=== PATIENT | male | born 2000 | race Caucasian/White ===

== ENCOUNTER 2021-06-26 22:42 | Emergency (ER) | payer BC ==
[2021-06-26] MEDS ORDERED: Sodium Chloride 0.9% 10 ML Syringe FLUSH PRN (22:49)
[2021-06-26] MEDS ORDERED: HYDROmorphone 1 MG/ML Syringe IVPUSH ONE (22:50)
[2021-06-26] MEDS ORDERED: Lactated Ringers 1,000 ML IV SCH (23:00)
[2021-06-26] MEDS ORDERED: Ketamine 500 mg/10 ML MDV ONE (23:47)
[2021-06-26] MEDS ORDERED: Midazolam 1 MG/ML 2 ML SDV ONE (23:47)
--- NOTE | 2021-06-27 00:07 | EDM.PDOC ---
ED HPI GENERAL MEDICAL PROBLEM - General Chief Complaint: Lower Extremity Injury/Pain Stated Complaint: DISLOCATED RT HIP Time Seen by Provider: 06/26/21 22:49 Source of Information: Reports: Patient History Limitations: Reports: No Limitations - History of Present Illness INITIAL COMMENTS - FREE TEXT/NARRATIVE: The patient presents with left hip pain. He was wrestling with some friends and he squatted down to lift his friend and his friend put his weight down on him. His knee went in and he thinks his left hip is dislocated. It is internally rotated and shortened and he cannot move it. He has never had a dislocation of his hip before. He has no other injuries. He has no medical problems. He last ate at 7pm tonight. He did have some drinks tonight. Onset: Sudden Duration: Minutes: Location: Reports: Lower Extremity, Left (hip pain) Quality: Reports: Sharp Severity: Severe Improves with: Reports: Immobilization Worsens with: Reports: Movement Context: Reports: Trauma (wrestling) Associated Symptoms: Reports: No Other Symptoms left hip Pain Score (Numeric/FACES): 8 - Related Data Allergies Allergy/AdvReac Type Severity Reaction Status Date / Time No Known Allergies Allergy Verified 06/26/21 22:53 Home Meds: Home Meds . [No Known Home Meds] 06/26/21 [History] Past Medical History - Past Health History Medical/Surgical History: Denies Medical/Surgical History Social & Family History - Tobacco Use Tobacco Use Status *Q: Never Tobacco User - Recreational Drug Use Recreational Drug Use: No Review of Systems - Review of Systems Review Of Systems: See Below Constitutional: Reports: No Symptoms Eyes: Reports: No Symptoms Ears: Reports: No Symptoms Nose: Reports: No Symptoms Mouth/Throat: Reports: No Symptoms Respiratory: Reports: No Symptoms Cardiovascular: Reports: No Symptoms GI/Abdominal: Reports: No Symptoms Genitourinary: Reports: No Symptoms Musculoskeletal: Reports: Other (Left hip pain) ED EXAM, GENERAL - Physical Exam Exam: See Below Exam Limited By: No Limitations General Appearance: Alert, No Apparent Distress Ears: Normal External Exam Nose: Normal Inspection Head: Atraumatic, Normocephalic Neck: Normal Inspection Respiratory/Chest: No Respiratory Distress, Lungs Clear, Normal Breath Sounds Cardiovascular: Regular Rate, Rhythm, No Edema, No Murmur GI/Abdominal: Soft, Non-Tender, No Organomegaly, No Mass Extremities: Other (Left leg is shortened and internally rotated with pain upon palpation to the hip area. Good pulses distally. The patient has some minor decreased sensation to his left leg.) ED TRAUMA EXTREMITY PROCEDURES - Joint Reduction Left Hip Sedation: Conscious Sedation Pre-Procedure NV Status: Abnormal (mild numbness) Post-Procedure NV Status: Normal Technique: Traction/Counter Traction Number of Attempts: 1 Post-Reduction Imaging: Completely Reduced Joint Reduction Complications: No Course - Vital Signs Last Recorded V/S: Last Vital Signs Temp 97.5 F 06/26/21 22:49 Pulse 96 06/27/21 00:01 Resp 14 06/27/21 00:01 BP 153/84 H 06/27/21 00:01 Pulse Ox 100 06/27/21 00:01 - Orders/Labs/Meds Orders: Active Orders 24 hr Category Date Time Status Peripheral IV Care [RC] . DIRECTED Care 06/26/21 22:49 Active Hip Min 1V w Pelvis Lt [CR] Stat Exams 06/27/21 00:08 Taken Pelvis 1V or 2V [CR] Stat Exams 06/26/21 22:50 Taken Lactated Ringers [Ringers, Lactated] 1,000 ml Med 06/26/21 23:00 Active IV ASDIRECTED Sodium Chloride 0.9% [Saline Flush] Med 06/26/21 22:49 Active 10 ml FLUSH ASDIRECTED PRN Durable Medical Equipment for Discharge [DME for Oth 06/27/21 00:19 Ordered Discharge] [COMM] Stat Peripheral IV Insertion Adult [OM.PC] Routine Oth 06/26/21 22:49 Ordered Medication Orders Lactated Ringer's (Ringers, Lactated) 1,000 mls @ 100 mls/hr IV ASDIRECTED ROVERTO Last Admin: 06/26/21 23:02 Dose: 100 mls/hr Documented by: LEO Sodium Chloride (Sodium Chloride 0.9% 10 Ml Syringe) 10 ml FLUSH ASDIRECTED PRN PRN Reason: Keep Vein Open Last Admin: 06/26/21 23:02 Dose: 10 ml Documented by: LEO Meds: Medications Generic Name Dose Route Start Last Admin Trade Name Freq PRN Reason Stop Dose Admin Lactated Ringer's 1,000 mls @ 100 mls/hr 06/26/21 23:00 06/26/21 23:02 Ringers, Lactated IV 100 mls/hr ASDIRECTED ROVERTO Administration Sodium Chloride 10 ml 06/26/21 22:49 06/26/21 23:02 Sodium Chloride 0.9% 10 Ml Syringe FLUSH 10 ml ASDIRECTED PRN Administration Keep Vein Open Discontinued Medications Generic Name Dose Route Start Last Admin Trade Name Zaida PRN Reason Stop Dose Admin Hydromorphone HCl 1 mg 06/26/21 22:50 06/26/21 22:59 Hydromorphone 1 Mg/Ml Syringe IVPUSH 06/26/21 22:51 1 mg ONETIME ONE Administration Ketamine HCl Confirm 06/26/21 23:47 Ketamine 500 Mg/10 Ml Mdv Administered 06/26/21 23:48 Dose 500 mg .ROUTE .STK-MED ONE Midazolam HCl Confirm 06/26/21 23:47 Midazolam 1 Mg/Ml 2 Ml Sdv Administered 06/26/21 23:48 Dose 2 mg .ROUTE .STK-MED ONE - Re-Assessments/Exams Free Text/Narrative Re-Assessment/Exam: 06/27/21 00:11 I ordered an IV LR at 100ml/hr, dilaudid and an x-ray of his hip. The x-ray shows a posterior dislocation. I had my TRANSFER MAN come in [place] and he sedated the patient and I was able to reduce the dislocation. The x-ray confirms the reduction and there is no fracture. I will get him some crutches and follow up with Dr Wolfe. Departure - Departure Time of Disposition: 00:20 Disposition: Home, Self-Care 01 Condition: Good Clinical Impression: Hip dislocation, left Qualifiers: Encounter type: initial encounter Qualified Code(s): S73.005A - Unspecified dislocation of left hip, initial encounter - Discharge Information *PRESCRIPTION DRUG MONITORING PROGRAM REVIEWED*: Not Applicable *COPY OF PRESCRIPTION DRUG MONITORING REPORT IN PATIENT RONALD: Not Applicable Referrals: PCP,Not In Area [Primary Care Provider] - Eulalio Wolfe MD [Physician] - 1 Week Forms: ED Department Discharge Additional Instructions: Ice your hip for 15 minutes 3 times per day for 3 days. Take tylenol or motrin as needed for pain. Follow up with Dr Wolfe within a week. Follow up with your guide dog trainer tomorrow. Use the crutches and only put light weight on your leg for a few days and advance after that. Please return if you are worse. Sepsis Event Note (ED) - Evaluation Sepsis Screening Result: No Definite Risk - Focused Exam Vital Signs: Vital Signs Temp Pulse Resp BP Pulse Ox 06/27/21 00:01 96 14 153/84 H 100 06/26/21 22:49 97.5 F 92 18 127/71 99 - My Orders Last 24 Hours: My Active Orders 06/26/21 22:49 Peripheral IV Care [RC] . DIRECTED Sodium Chloride 0.9% [Saline Flush] 10 ml FLUSH ASDIRECTED PRN Peripheral IV Insertion Adult [OM.PC] Routine 06/26/21 22:50 Pelvis 1V or 2V [CR] Stat 06/26/21 23:00 Lactated Ringers [Ringers, Lactated] 1,000 ml IV ASDIRECTED 06/27/21 00:08 Hip Min 1V w Pelvis Lt [CR] Stat 06/27/21 00:19 Durable Medical Equipment for Discharge [DME for Discharge] [COMM] Stat - Assessment/Plan Last 24 Hours: My Active Orders 06/26/21 22:49 Peripheral IV Care [RC] . DIRECTED Sodium Chloride 0.9% [Saline Flush] 10 ml FLUSH ASDIRECTED PRN Peripheral IV Insertion Adult [OM.PC] Routine 06/26/21 22:50 Pelvis 1V or 2V [CR] Stat 06/26/21 23:00 Lactated Ringers [Ringers, Lactated] 1,000 ml IV ASDIRECTED 06/27/21 00:08 Hip Min 1V w Pelvis Lt [CR] Stat 06/27/21 00:19 Durable Medical Equipment for Discharge [DME for Discharge] [COMM] Stat
--- NOTE | 2021-06-27 00:21 | PCM.PREANE ---
Preanesthetic Assessment - Procedure Proposed Procedure: Left hip reduction - Anesthesia/Transfusion/Family Hx Anesthesia History: Prior Anesthesia Without Reaction (wisdom teeth) Family History of Anesthesia Reaction: No Transfusion History: No Prior Transfusion(s) - Review of Systems General: No Symptoms Pulmonary: No Symptoms Cardiovascular: No Symptoms Gastrointestinal: No Symptoms Neurological: No Symptoms Other: Reports: None - Physical Assessment NPO Status Date: 06/26/21 NPO Status Time: 22:30 Vital Signs: Last Vital Signs Temp 36.4 C 06/26/21 22:49 Pulse 96 06/27/21 00:01 Resp 14 06/27/21 00:01 BP 153/84 H 06/27/21 00:01 Pulse Ox 100 06/27/21 00:01 Height: 1.7 m Weight: 70.307 kg ASA Class: 1E Mental Status: Alert & Oriented x3 Airway Class: Mallampati = 2 Dentition: Reports: Normal Dentition Thyro-Mental Finger Breadths: 3 Mouth Opening Finger Breadths: 3 ROM/Head Extension: Full Lungs: Clear to Auscultation, Normal Respiratory Effort Cardiovascular: Regular Rate, Regular Rhythm - Allergies Allergies/Adverse Reactions: Allergies Allergy/AdvReac Type Severity Reaction Status Date / Time No Known Allergies Allergy Verified 06/26/21 22:53 - Blood Blood Available: No Product(s) Available: None - Anesthesia Plan Pre-Op Medication Ordered: None - Acknowledgements Anesthesia Type Planned: MAC (versed, ketamine) Pt an Appropriate Candidate for the Planned Anesthesia: Yes Alternatives and Risks of Anesthesia Discussed w Pt/Guardian: Yes Pt/Guardian Understands and Agrees with Anesthesia Plan: Yes PreAnesthesia Questionnaire - Past Health History Medical/Surgical History: Denies Medical/Surgical History - SUBSTANCE USE Tobacco Use Status *Q: Never Tobacco User Recreational Drug Use History: No - HOME MEDS Home Medications: Home Meds . [No Known Home Meds] 06/26/21 [History] - CURRENT (IN HOUSE) MEDS Current Meds: Current Medications Lactated Ringer's (Ringers, Lactated) 1,000 mls @ 100 mls/hr IV ASDIRECTED ROVERTO Last Admin: 06/26/21 23:02 Dose: 100 mls/hr Documented by: Sodium Chloride (Sodium Chloride 0.9% 10 Ml Syringe) 10 ml FLUSH ASDIRECTED PRN PRN Reason: Keep Vein Open Last Admin: 06/26/21 23:02 Dose: 10 ml Documented by: Discontinued Medications Hydromorphone HCl (Hydromorphone 1 Mg/Ml Syringe) 1 mg IVPUSH ONETIME ONE Stop: 06/26/21 22:51 Last Admin: 06/26/21 22:59 Dose: 1 mg Documented by: Ketamine HCl (Ketamine 500 Mg/10 Ml Mdv) Confirm Administered Dose 500 mg .ROUTE .STK-MED ONE Stop: 06/26/21 23:48 Midazolam HCl (Midazolam 1 Mg/Ml 2 Ml Sdv) Confirm Administered Dose 2 mg .ROUTE .STK-MED ONE Stop: 06/26/21 23:48
--- NOTE | 2021-06-27 00:22 | PCM48HPAN ---
Post Anesthesia Note - EVALUATION WITHIN 48HRS OF ANESTHETIC Vital Signs in Normal Range: Yes Patient Participated in Evaluation: Yes Respiratory Function Stable: Yes Airway Patent: Yes Cardiovascular Function Stable: Yes Hydration Status Stable: Yes Pain Control Satisfactory: Yes Nausea and Vomiting Control Satisfactory: Yes Mental Status Recovered: Yes Vital Signs: Last Vital Signs Temp 36.4 C 06/26/21 22:49 Pulse 96 06/27/21 00:01 Resp 14 06/27/21 00:01 BP 153/84 H 06/27/21 00:01 Pulse Ox 100 06/27/21 00:01
--- NOTE | 2021-06-27 07:11 | CR ---
Pelvis and left hip: AP view of the pelvis was obtained as well as AP view of the left hip. Comparison: No previous study is available. Joint spaces within both hips are maintained. Sacroiliac joints are normal. No discrete fracture or other bony abnormality is appreciated. Impression: 1. Nothing acute is seen on AP pelvis or an AP left hip exam. Diagnostic code #1
--- NOTE | 2021-06-30 21:41 | CR ---
Pelvis: AP view of the pelvis was obtained. Left hip appears to be abnormally located. Right hip appears normal. Sacroiliac joints are normal. No discrete fracture is appreciated. Impression: 1. Abnormally located left hip. Lateral view would be needed to determine position of presumed dislocation. 2. Other portions of the AP pelvis exam show no discrete abnormality. Diagnostic code #3
== END 2021-06-27 00:31 | disposition home or self-care (01) ==
LOC: JD.ED 22:42
DX: S73.005A Unspecified dislocation of left hip, initial encounter (principal); X50.0XXA Overexertion from strenuous movement or load, initial encounter
CPT/HCPCS: 27250; 72170; 73501; 96374; 99284; J1170; J2250; J7120; 01200; 27252; 99140; 99283